=== PATIENT | male | born 1950 | race Caucasian/White ===

== ENCOUNTER 2017-10-09 15:38 | Emergency (ER) | payer OTHER ==
[2017-10-09 16:40] LABS: Basophils % (Auto) 0.2 % (0.0-1.8); Eosinophils % (Auto) 0.4 % (0.0-4.3); Hematocrit 44.3 % (35.5-45.6); Hemoglobin 15.3 gm/dl (11.8-15.2); Mean Corpuscular HGB Conc 35 % (32-34); Mean Corpuscular Hemoglobin 33 pg (28-32); Mean Corpuscular Volume 94 fl (84-94); Platelet Count 166 K/mm3 (140-440); Red Cell Distribution Width 12.7 % (13.2-15.2); White Blood Count 8.2 K/mm3 (4.5-11.0)
[2017-10-09 17:07] LABS: Albumin 4.4 g/dL (3.9-5); Albumin/Globulin Ratio 1.5 %; Bilirubin,Total 1.9 mg/dL (0.1-1.2); Calcium 9.2 mg/dL (8.4-10.2); Chloride 96.1 mmol/L (98-107); Potassium 3.5 mmol/L (3.6-5.0); Total Protein 7.3 g/dL (6.3-8.2)
[2017-10-09 17:08] LABS: Bilirubin,Urine NEG (Negative); Blood,Urine LG (Negative); Ketones,Urine NEG (Negative); Leukocyte Esterase,Urine NEG (Negative); Mucus,Urine 1+ /HPF; Nitrite,Urine NEG (Negative); Protein,Urine <15 mg/dL mg/dL (Negative); Urobilinogen,Urine < 2.0 mg/dL (<2.0)
[2017-10-09] MEDS ORDERED: SUBLIMAZE IV ONE (23:16)
[2017-10-09] MEDS ORDERED: NACL 0.9% 500 ML 500 ML IV ONE (23:16)
[2017-10-10] MEDS ORDERED: NACL ONE (00:09)
--- NOTE | 2017-10-10 00:22 | Cat Scan Report ---
FINAL REPORT EXAM: CT ABDOMEN PELVIS W CON HISTORY: abd paion TECHNIQUE: Routine axial imaging was obtained of the abdomen and pelvis following the intravenous injection of 100 cc of Omnipaque 300. Delayed axial imaging was also obtained. Sagittal and coronal reconstructions were reviewed also. FINDINGS: The lung bases are clear. Pleural fluid is not seen. There is a small hiatal hernia. The liver, gallbladder, pancreas, spleen, and adrenal glands appear normal. The kidneys reveal mild right-sided hydronephrosis with very mild perinephric stranding on the right side. There are nonobstructing stones in the lower half of the right kidney measuring to 3 millimeters in diameter. A definite stone is not seen the right ureter. A recently passed stone cannot be excluded. The left kidney is unremarkable. There calcification of the abdominal aorta. The bowel loops are normal in caliber. There is no evidence of free fluid or adenopathy. The appendix is not seen with certainty. In the pelvis the prostate gland is mildly enlarged. The bladder is normal size and reveals a dependent 3 millimeter calcification. The skeletal structures reveal multilevel disc degeneration in the lumbar spine. IMPRESSION: Mild right-sided hydronephrosis without a stone in the right ureter. A recently passed stone cannot be excluded. 3 millimeter in diameter dependent stone in the bladder. Several nonobstructing stones in lower pole of the right kidney. Small hiatal hernia. Mild prostatic enlargement. Multilevel disc degeneration in the lumbar spine.
[2017-10-10 00:24] VITALS: BP 134/82
--- NOTE | 2017-10-10 00:51 | Emergency Department Report ---
ED General Adult HPI - General Chief complaint: Abdominal Pain Stated complaint: ABDOMINAL PAIN Time Seen by Provider: 10/09/17 22:57 Source: patient, RN notes reviewed Mode of arrival: Ambulatory Limitations: No Limitations - History of Present Illness Initial comments: This is a 67-year-old male with a history of parkinsonism, presenting to the ER with complaint of right flank pain. The pain is intermittent. It has no exacerbating or relieving factors. There is no headache, neck pain, chest pain , shortness of breath. He denies testicular pain, and denies irritative/ obstructive urinary symptoms. -: Gradual, days(s) Location: abdomen, right (flank) Radiation: abdomen Severity scale (0 -10): 2 Quality: aching Consistency: intermittent Improves with: none Worsens with: none Associated Symptoms: other (patient indicates no vomiting). denies: confusion, chest pain, cough, diaphoresis, fever/chills, headaches, loss of appetite, malaise, shortness of breath, syncope, weakness - Related Data Previous Rx's Medication Instructions Recorded Last Taken Type Acetaminophen [Tylenol Arthritis] 650 mg PO Q6HR PRN #30 tablet.er 10/10/17 Unknown Rx Ibuprofen [Motrin] 600 mg PO Q8H PRN #30 tablet 10/10/17 Unknown Rx Ondansetron [Zofran Odt] 4 mg PO Q8HR PRN #20 tab.rapdis 10/10/17 Unknown Rx Tamsulosin [Flomax] 0.4 mg PO QDAY #30 cap 10/10/17 Unknown Rx Allergies Allergy/AdvReac Type Severity Reaction Status Date / Time No Known Allergies Allergy Unverified 10/09/17 15:56 ED Review of Systems ROS: Stated complaint: ABDOMINAL PAIN Other details as noted in HPI ED Past Medical Hx - Past Medical History Previous Medical History?: Yes Hx Hypertension: Yes Additional medical history: Parkinson's disease - Surgical History Past Surgical History?: Yes Additional Surgical History: brain surgery - Social History Smoking Status: Never Smoker Substance Use Type: Alcohol, Prescribed - Medications Home Medications: Home Medications Medication Instructions Recorded Confirmed Last Taken Type Acetaminophen [Tylenol Arthritis] 650 mg PO Q6HR PRN #30 tablet.er 10/10/17 Unknown Rx Ibuprofen [Motrin] 600 mg PO Q8H PRN #30 tablet 10/10/17 Unknown Rx Ondansetron [Zofran Odt] 4 mg PO Q8HR PRN #20 tab.rapdis 10/10/17 Unknown Rx Tamsulosin [Flomax] 0.4 mg PO QDAY #30 cap 10/10/17 Unknown Rx ED Physical Exam - General Limitations: No Limitations General appearance: alert, in no apparent distress - Head Head exam: Present: atraumatic, normocephalic - Eye Eye exam: Present: normal appearance, EOMI. Absent: nystagmus - ENT ENT exam: Present: normal exam, normal orophraynx, mucous membranes moist, normal external ear exam - Neck Neck exam: Present: normal inspection, full ROM - Respiratory Respiratory exam: Present: normal lung sounds bilaterally. Absent: respiratory distress - Cardiovascular Cardiovascular Exam: Present: regular rate, normal rhythm, normal heart sounds. Absent: systolic murmur, diastolic murmur, rubs, gallop - GI/Abdominal GI/Abdominal exam: Present: soft, normal bowel sounds. Absent: distended, tenderness, guarding, rebound, rigid, pulsatile mass - Rectal Rectal exam: Present: deferred - exam: Present: normal inspection. Absent: testicular tenderness External exam: Present: normal external exam, other (there is no testicular tenderness. There is normal testicular lie bilaterally. There is normal cremasteric reflex bilaterally.) - Extremities Exam Extremities exam: Present: normal inspection, full ROM, normal capillary refill. Absent: tenderness, pedal edema, joint swelling, calf tenderness - Back Exam Back exam: Present: normal inspection, full ROM. Absent: tenderness, CVA tenderness (R), paraspinal tenderness, vertebral tenderness - Neurological Exam Neurological exam: Present: alert, oriented X3, CN II-XII intact, normal gait, other (Extraocular movements intact. Tongue midline. No facial droop. Facial sensation intact to light touch in the V1, V2, V3 distribution bilaterally. 5 and 5 strength in 4 extremities.. Sensation is intact to light touch in 4 extremities.). Absent: motor sensory deficit - Psychiatric Psychiatric exam: Present: normal affect, normal mood - Skin Skin exam: Present: warm, dry, intact, normal color. Absent: rash ED Course Vital Signs 10/09/17 10/09/17 10/10/17 15:56 21:25 00:22 Temperature 98.2 F Pulse Rate 72 91 H 74 Respiratory 18 16 16 Rate Blood Pressure 146/78 Blood Pressure 150/102 134/82 [Left] O2 Sat by Pulse 98 97 93 Oximetry ED Medical Decision Making - Lab Data Result diagrams: 10/09/17 16:22 10/09/17 16:22 Vital Signs 10/09/17 10/09/17 10/10/17 15:56 21:25 00:22 Temperature 98.2 F Pulse Rate 72 91 H 74 Respiratory 18 16 16 Rate Blood Pressure 146/78 Blood Pressure 150/102 134/82 [Left] O2 Sat by Pulse 98 97 93 Oximetry Lab Results 10/09/17 10/09/17 10/09/17 Range/Units 16:22 16:22 16:32 WBC 8.2 (4.5-11.0) K/mm3 RBC 4.70 (3.65-5.03) M/mm3 Hgb 15.3 H (11.8-15.2) gm/dl Hct 44.3 (35.5-45.6) % MCV 94 (84-94) fl MCH 33 H (28-32) pg MCHC 35 H (32-34) % RDW 12.7 L (13.2-15.2) % Plt Count 166 (140-440) K/mm3 Lymph % (Auto) 9.5 L (13.4-35.0) % [place] % (Auto) 11.4 H (0.0-7.3) % Eos % (Auto) 0.4 (0.0-4.3) % Baso % (Auto) 0.2 (0.0-1.8) % Lymph # 0.8 L (1.2-5.4) K/mm3 [place] # 0.9 H (0.0-0.8) K/mm3 Eos # 0.0 (0.0-0.4) K/mm3 Baso # 0.0 (0.0-0.1) K/mm3 Seg Neutrophils % 78.5 H (40.0-70.0) % Seg Neutrophils # 6.4 (1.8-7.7) K/mm3 Sodium 138 (137-145) mmol/L Potassium 3.5 L (3.6-5.0) mmol/L Chloride 96.1 L (98-107) mmol/L Carbon Dioxide 28 (22-30) mmol/L Anion Gap 17 mmol/L BUN 27 H (9-20) mg/dL Creatinine 1.4 (0.8-1.5) mg/dL Estimated GFR 50 ml/min BUN/Creatinine Ratio 19 % Glucose 114 H (75-100) mg/dL Calcium 9.2 (8.4-10.2) mg/dL Total Bilirubin 1.90 H (0.1-1.2) mg/dL AST 12 (5-40) units/L ALT 6 L (7-56) units/L Alkaline Phosphatase 98 (35-129) units/L Total Protein 7.3 (6.3-8.2) g/dL Albumin 4.4 (3.9-5) g/dL Albumin/Globulin Ratio 1.5 % Lipase 113 H (13-60) units/L Urine Color Yellow (Yellow) Urine Turbidity Clear (Clear) Urine pH 6.0 (5.0-7.0) Ur Specific [place] 1.011 (1.003-1.030) Urine Protein <15 mg/dl (Negative) mg/dL Urine Glucose (UA) Neg (Negative) mg/dL Urine Ketones Neg (Negative) mg/dL Urine Blood Lg (Negative) Urine Nitrite Neg (Negative) Urine Bilirubin Neg (Negative) Urine Urobilinogen < 2.0 (<2.0) mg/dL Ur Leukocyte Esterase Neg (Negative) Urine WBC (Auto) 9.0 H (0.0-6.0) /HPF Urine RBC (Auto) 57.0 (0.0-6.0) /HPF U Epithel Cells (Auto) 1.0 (0-13.0) /HPF Urine Mucus 1+ /HPF - Radiology Data Radiology results: report reviewed, image reviewed Referring Physician: STEVE SCHAEFFER Patient Name: BRODY ESCOBAR Date of : 1950 Sex: Male Report Date: 2017-10-09 Report Status: [place] [address] Cat Scan Report Signed Patient: BRODY ESCOBAR MR#: [id number] : 1950 Acct:[id number] Age/Sex: 67 / M ADM Date: 10/09/17 Loc: ED Attending Dr: Ordering Physician: STEVE SCHAEFFER MD Date of Service: 10/09/17 Procedure(s): CT abdomen pelvis w con Accession Number(s): [id number] cc: STEVE SCHAEFFER MD FINAL REPORT EXAM: CT ABDOMEN PELVIS W CON HISTORY: abd paion TECHNIQUE: Routine axial imaging was obtained of the abdomen and pelvis following the intravenous injection of 100 cc of Omnipaque 300. Delayed axial imaging was also obtained. Sagittal and coronal reconstructions were reviewed also. FINDINGS: The lung bases are clear. Pleural fluid is not seen. There is a small hiatal hernia. The liver, gallbladder, pancreas, spleen, and adrenal glands appear normal. The kidneys reveal mild right-sided hydronephrosis with very mild perinephric stranding on the right side. There are nonobstructing stones in the lower half of the right kidney measuring to 3 millimeters in diameter. A definite stone is not seen the right ureter. A recently passed stone cannot be excluded. The left kidney is unremarkable. There calcification of the abdominal aorta. The bowel loops are normal in caliber. There is no evidence of free fluid or adenopathy. The appendix is not seen with certainty. In the pelvis the prostate gland is mildly enlarged. The bladder is normal size and reveals a dependent 3 millimeter calcification. The skeletal structures reveal multilevel disc degeneration in the lumbar spine. IMPRESSION: Mild right-sided hydronephrosis without a stone in the right ureter. A recently passed stone cannot be excluded. 3 millimeter in diameter dependent stone in the bladder. Several nonobstructing stones in lower pole of the right kidney. Small hiatal hernia. Mild prostatic enlargement. Multilevel disc degeneration in the lumbar spine. Transcribed By: RB Dictated By: YADI BLACKMON MD Electronically Authenticated By: YADI BLACKMON MD Signed Date/Time: 10/09/172018 DD/ 2019 - Medical Decision Making Differential diagnosis, including but not limited to: Renal colic, appendicitis , colitis, diverticulitis, constipation, malignancy Assessment and plan: 67-year-old male, no abdominal tenderness, normal genital exam, with right flank pain, CT scan suggests recently passed stone, with a stone in the dependent portion of the bladder. He is afebrile, with reassuring vital signs, tolerating liquid feeds and is very well-appearing. Patient will be discharged with pain medication, nausea medication, tamsulosin, instructions to follow with outpatient urology. Critical care attestation.: If time is entered above; I have spent that time in minutes in the direct care of this critically ill patient, excluding procedure time. ED Disposition Clinical Impression: Right flank pain Disposition: DC-01 TO HOME OR SELFCARE Is pt being admited?: No Does the pt Need Aspirin: No Condition: Stable Instructions: Renal Colic (ED) Additional Instructions: Laboratory studies and CT scan suggested kidney stone in the bladder. Patient most likely passed a kidney stone from the right ureter into the bladder. Take the pain medication, nausea medication as needed/directed. Follow up with an outpatient urology specialist within the next 2-3 weeks. Return to the ER right away with new pain, worsening pain, migration of pain, fevers, chills, lethargy, irritability, projectile vomiting, change in mental status, confusion , inability to tolerate liquid feeds. [phone] Los estudios de laboratorio y la tomografa computarizada sugirieron clculos renales en la vejiga. Es muy probable que el paciente haya pasado un clculo renal del urter derecho a la vejiga. Elsa el medicamento para el dolor, medicamentos para nuseas segn sea necesario / dirigido. Ayde un seguimiento con un especialista en urologa ambulatoria dentro de las prximas 2-3 semanas. Regrese a la luda de urgencias inmediatamente con dolor nuevo, empeoramiento del dolor, migracin de dolor, fiebre, escalofros, letargo, irritabilidad, v mitos de proyectil, cambio en el estado mental, confusin, incapacidad para tolerar alimentos lquidos. Referrals: PRIMARY CAREMD [Primary Care Provider] - 3-5 Days SANDRO MARIE MD [Staff Physician] - 3-5 Days
== END 2017-10-10 01:19 | disposition home or self-care (01) ==
LOC: ED 15:38
DX: R10.9 Unspecified abdominal pain (principal); I10 Essential (primary) hypertension; G20 Parkinson's disease
CPT/HCPCS: 36415; 74177; 80053; 81001; 83690; 85025; 96374; 99284; J3010; J7040; Q9967